=== PATIENT | male | born 1945 | race Caucasian/White ===

== ENCOUNTER → 2016-10-25 | Outpatient (CLI) | payer MEDICARE, OTHER ==
[~2016-10-25] MED LIST: ASPIRIN EC81 MG PO; ELIQUIS5 MG PO; LIPITOR40 MG PO; LOPRESSOR25 MG PO; PROSTATE HEALT1 EACH PO
== END | disposition disaster alternative care site (69) ==
LOC: GRAD 09:55
DX: I65.23 Occlusion and stenosis of bilateral carotid arteries (principal); Z86.73 Personal history of transient ischemic attack (TIA), and cerebral infarction without residual deficits

== ENCOUNTER 2016-10-29 11:00 | Inpatient (IN) | payer MEDICARE, OTHER ==
[~2016-10-29] VITALS: Ht 188 cm; Wt 86.6 kg
--- NOTE | ~2016-10-29 | DS ---
PATIENT'S NAME: ORVILLE GARCAI [facility] AGE: 71 Y [address] ROOM: [address] [address] LOCATION: GICU ADMIT DATE: 11/03/2016 Discharge Summary DISCHARGE DATE: 11/04/2016 FAMILY PHYSICIAN: Raul Amos MD ATTENDING PHYSICIAN: Ted Hopson ADMITTING DIAGNOSIS: Right carotid stenosis status post carotid endarterectomy. DISCHARGE DIAGNOSIS: Right carotid stenosis status post carotid endarterectomy. SECONDARY DIAGNOSES: 1. Bradycardia. 2. Hypertension. 3. History of transient ischemic attack. 4. Atrial flutter. PROCEDURE: Carotid endarterectomy done on 11/03/2016. CONSULTATIONS: 1. Vascular Surgery. 2. Cardiology. HISTORY OF PRESENT ILLNESS: The patient is a 71-year-old male with past medical history of TIAs, atrial flutter status post ablation, and hypertension, who presented here for elective right carotid endarterectomy. The patient underwent carotid endarterectomy and was noted to have a brief episode of atrial flutter. The patient was given digoxin and the patient was also taking metoprolol, and was noted to have low blood pressure and to be bradycardic. However, the patient was asymptomatic, denies chest pain, shortness of breath, lightheadedness, or confusion. The patient was started on Jg-Synephrine and was transferred to ICU for further evaluation. The patient's blood pressure improved also heart rate improved during stay. Jg- Synephrine drip was discontinued. HOSPITAL COURSE: The patient was transferred to ICU and was placed on telemonitor. Heart rate improved, however, his heart rate dips into 40s and low 50s. Cardiology saw the patient. Cardiology recommended stopping home medication of metoprolol. During day the patient's heart rate improved. On long discussion, he reports that his heart rate has been in the low 50s and 40s in the past ever since he was started on Lopressor. His blood pressure was stable. The patient was able to ambulate with adequate chronotropic response. The patient was offered to stay for one more night to evaluate his heart rate, however, the patient declined and insisting he wants to go home. PATIENT'S NAME: ORVILLE GARCIA [facility] AGE: 71 Y [address] ROOM: [id number] [place], [place] [address] LOCATION: GICU ADMIT DATE: 11/03/2016 Discharge Summary DISCHARGE DATE: 11/04/2016 FAMILY PHYSICIAN: Raul Amos MD ATTENDING PHYSICIAN: Ted Hopson At the time of discharge, the patient's heart rate was in the 60s. The patient was started on Eliquis 5 mg b.i.d. On the day of discharge, long- discussion was made about the use of Coumadin versus NOACs especially Eliquis. The patient elected to use Eliquis. Risk and benefit of anticoagulation were discussed with the patient and the patient fully understands. CONDITION: Stable. DISPOSITION: Home. DISCHARGE MEDICATIONS: 1. Holding his beta-edu. 2. We will start Eliquis 5 mg b.i.d. DISCHARGE INSTRUCTIONS: To go to the next Emergency Department or contact the physician if the patient feels chest pain, shortness of breath, fever, chills, productive cough, motor and sensory change, and dizziness. FOLLOWUP: Follow up with primary care physician and Dr. Hopson in 2 weeks. PHYSICAL EXAMINATION: VITAL SIGNS: Temperature 98.7, blood pressure 100/59 with heart rate of 53, and respiratory rate of 15. HEAD: Normocephalic and atraumatic. NECK: The patient has right endarterectomy surgical scar clean, dry, and intact. CHEST: Clear to auscultation. HEART: Regular rate and rhythm. No murmurs, rubs, or gallops. ABDOMEN: Soft, nontender, and nondistended. Bowel sounds present. EXTREMITIES: No edema. CENTRAL NERVOUS SYSTEM: The patient is alert and oriented x3. Greater than 30 minutes was spent on patient discharge. MAXINEWE MD JAISON SANCHEZ/sara /[id number] d: 11/05/16 1205 t: 11/09/16 0614, DISCHARGE SUMMARY
--- NOTE | ~2016-10-29 | CON ---
PATIENT'S NAME: ORVILLE GARCIA [facility] AGE: 71 Y [address] ROOM: [place] [address] LOCATION: CU ADMIT DATE: 11/03/2016 Consultation DISCHARGE DATE: FAMILY PHYSICIAN: RODDY DERAS MD ATTENDING PHYSICIAN: ARIANNE MI REFERRING PHYSICIAN: NHAN GARRETT MD CHIEF COMPLAINT: Bradycardia and hypotension after right carotid endarterectomy. HISTORY OF PRESENT ILLNESS: This is a 71-year-old male, who underwent elective right carotid endarterectomy today, and during the recovery period in the PACU, the patient developed a brief episode of atrial flutter, which required digoxin, and the patient also had taken metoprolol earlier today in the morning, and the patient's heart rate and blood pressure went low and required Jg-Synephrine drip, and the patient was transferred to ICU for further care. During all this time, the patient has been asymptomatic and denies any chest pain or shortness of breath or lightheadedness or confusion. The patient has a history of atrial flutter in the past, required ablation several years ago and has been on and off on Coumadin. Today, the patient was put back on Coumadin. We are being consulted for medical management. His medical problem includes hypertension and TIA without neurological deficit and history of atrial flutter in the past. Data Transcriber was also consulted for hypotension and sinus bradycardia, and patient was put on neosynephrine drip. REVIEW OF SYSTEMS: As mentioned in the history of present illness. All other systems were reviewed and were negative except those mentioned in the history of present illness. PAST MEDICAL HISTORY: 1. TIA in the past without any neurological deficit. 2. History of carotid stenosis, status post right carotid endarterectomy today. 3. Hypertension. 4. History of atrial flutter in the past, requiring ablation and has been on Coumadin on and off, right now is back on Coumadin and also takes metoprolol. ALLERGIES: NO KNOWN DRUG ALLERGIES. HOME MEDICATIONS: 1. Aspirin 81 mg p.o. daily. 2. Lipitor 40 mg p.o. daily. 3. Lopressor 25 mg p.o. b.i.d. PATIENT'S NAME: ORVILLE GARCIA [facility] AGE: 71 Y [address] ROOM: [place] [address] LOCATION: GICU ADMIT DATE: 11/03/2016 Consultation DISCHARGE DATE: FAMILY PHYSICIAN: RODDY DERAS MD ATTENDING PHYSICIAN: ARIANNE MI SOCIAL HISTORY: The patient was a former cigarette smoker. He quit about 9 years ago. He smoked about 1 pack per day for few years. He is a social alcohol drinker. Denies any alcohol abuse. He denies any illegal drug use. PAST SURGICAL HISTORY: 1. Status post right carotid endarterectomy today. 2. Appendectomy. 3. Hip surgery in the past. FAMILY HISTORY: Father and mother both from stroke at old age. PHYSICAL EXAMINATION: VITAL SIGNS: At the time of my dictation, heart rate is 47, blood pressure is 122/79, MAP of 71, saturation 95% on room air, and respiration is 16. GENERAL APPEARANCE: The patient is alert and oriented x3, in no acute distress. HEENT: Pupils are equally round and reactive to light. Extraocular muscles intact. Anicteric sclerae. Nasal turbinates are normal bilaterally. Moist oral mucosa. NECK: No JVD. CARDIOVASCULAR: Regular rate and rhythm. Normal S1, S2. No murmur. No rubs. No gallops. RESPIRATORY: Clear to auscultation. No rales. No rhonchi, no crackles, no wheezing. ABDOMEN: Soft, nontender, nondistended, bowel sounds present, no mass. EXTREMITIES: No edema in upper or lower extremities. SKIN: No ulcer, no rash, no cyanosis. NEUROLOGICAL: Grossly nonfocal. LABORATORY DATA: None so far. IMAGING STUDIES: None so far. ASSESSMENT AND PLAN: 1. Regarding his hypotension and bradycardia: Likely from the effects of digoxin and from the metoprolol. The patient's currently heart rate in the 45 and asymptomatic during all this time, blood pressure in the 120. I will continue the Jg-Synephrine drip as ordered by Cardiology, and we PATIENT'S NAME: ORVILLE GARCIA [facility] AGE: 71 Y [address] ROOM: [place] [address] LOCATION: GICU ADMIT DATE: 11/03/2016 Consultation DISCHARGE DATE: FAMILY PHYSICIAN: RODDY DERAS MD ATTENDING PHYSICIAN: AIRANNE MI will wean off as tolerated. I will hold the metoprolol for now and resume later once the heart rate and blood pressure is more stable. I will get a basic metabolic panel and magnesium to make sure the electrolytes are okay with the potassium more than 4 and magnesium more than 2 given that he has a brief episode of atrial flutter after the surgery today. Further plan will depend on clinical course. If he becomes symptomatic from the bradycardia, we will do atropine and also switch the Jg-Synephrine to dopamine or to epinephrine drip. 2. Regarding his history of atrial flutter: He is back on Coumadin given that he has a high CHADSVasc2 score. Coumadin per pharmacy to dose for INR 2 to 3. 3. Regarding his hypertension: Obviously right now, we will hold the metoprolol in the setting of bradycardia and hypotension in the postop period. For now, continue the Jg-Synephrine drip and wean off as tolerated. 4. Regarding his transient ischemic attacks: No active issue. No neurological deficit. 5. Regarding his right carotid endarterectomy: Per Vascular Surgery to manage. 6. Regarding his deep venous thrombosis prophylaxis: He is on Coumadin already. 7. He is a full code. Time spent in care on the day of consultation 35 minutes where 10 minutes were spent on chart review, and the remainder of time was spent on interview and physical examination, also on the counseling, which includes going over the plan of care with the patient and addressing all his questions and concerns to his satisfaction. Further plan will depend on clinical course. AYDEN SO MD CC/modl /[id number] d: 11/04/162 t: 11/04/16 0815, CONSULTATION REPORT
--- NOTE | ~2016-10-29 | CON ---
PATIENT'S NAME: ORVILLE GARCIA [facility] AGE: 71 Y [address] ROOM: [address] [address] LOCATION: GICU ADMIT DATE: 11/03/2016 Consultation DISCHARGE DATE: FAMILY PHYSICIAN: RODDY DERAS MD ATTENDING PHYSICIAN: ARIANNE HOPSON REFERRING PHYSICIAN: NHAN GARRETT MD REFERRING PHYSICIAN: Dr. Hopson. REASON FOR CONSULTATION: Atrial fibrillation with rapid ventricular response and post carotid endarterectomy. CHIEF COMPLAINT: The patient is postop and found to be in atrial fibrillation with rapid ventricular response. HISTORY OF PRESENTING ILLNESS: The patient is a very pleasant 71-year-old male, who has history of atrial flutter status post ablation procedure about five years ago by Dr. Pritchett per patient. He also has history of nonobstructive coronary artery disease noted on cardiac cath in 2008 with 40% mid LAD, 40% proximal RCA disease. His other comorbidities include sleep apnea. The patient also has history of hypertension and tobacco abuse. The patient is awake and answers questions appropriately. However, he is little bit slower to respond and just is postop from anesthesia for his right carotid endarterectomy. The patient reports he really does not have any chest pain, tightness, pressure, heaviness, or discomfort. He does not have any shortness of breath, PND, orthopnea, or lower extremity edema. He also denies palpitations. The patient reports he used to be on warfarin and that was stopped about a month ago after 30-day event monitor did not reveal any atrial flutter or fibrillation. The patient was diagnosed with 80% right internal carotid artery and history of TIA for which he underwent a carotid endarterectomy today. The patient was in sinus rhythm in the preop area. However, just prior to the surgery beginning, he was noted to be in atrial fibrillation. However, his rates are well controlled and his blood pressure was stable, so they decided to proceed with the surgery. The patient did tolerate the procedure well and there were a few episodes where he was in atrial fibrillation RVR with rates in the 110 range. At the end of the procedure, he did have some hypotension and he was PATIENT'S NAME: ORVILLE GARCIA [facility] AGE: 71 Y [address] ROOM: [address] [place] [address] LOCATION: [facility] ADMIT DATE: 11/03/2016 Consultation DISCHARGE DATE: FAMILY PHYSICIAN: RODDY DERAS MD ATTENDING PHYSICIAN: ARIANNE HOPSON started on Jg-Synephrine drip. REVIEW OF SYSTEMS: All review of systems discussed with the patient. Pertinent positives and negatives mentioned in the history of presenting illness. PAST MEDICAL HISTORY: He has history of hypertension, right carotid artery disease, history of atrial flutter status post ablation procedure, hyperlipidemia, and squamous- cell cancer. PAST SURGICAL HISTORY: Partial left hip surgery and pelvis fracture repair. FAMILY HISTORY: There is no evidence of premature coronary artery disease or sudden cardiac . SOCIAL HISTORY: The patient is and he used to smoke, but he quit. He does not any more. He is a social drinker. PHYSICAL EXAMINATION: VITAL SIGNS: Blood pressure systolic 80, diastolic 50s, according to the art line, he is on jg drip, heart rate 122, tele atrial fibrillation, respirations 16, height is 74 inches, and weight is 195 pounds. His BMI is 25. GENERAL: The patient is not in any apparent distress. He is slightly drowsy after his sedation for carotid endarterectomy. He is well-nourished and well- developed. EYES: Bilateral lids normal. Sclerae are clear. Mucous membranes moist. NECK: No JVD. HEART: S1, S2. Irregular rate and rhythm. Tachycardic. No murmurs, gallops, or rubs. LUNGS: Clear to auscultation bilaterally. No wheezing. ABDOMEN: Soft. Bowel sounds positive. EXTREMITIES: No edema. MUSCULOSKELETAL: Good range of motion. SKIN: Warm and dry. PSYCH: The patient is awake, arousable, and answers all questions appropriately. He is oriented to time and place. ALLERGIES: THE PATIENT DOES NOT HAVE ANY KNOWN DRUG ALLERGIES. PATIENT'S NAME: ORVILLE GARCIA [facility] AGE: 71 Y [address] ROOM: [place] [address] LOCATION: [facility] ADMIT DATE: 11/03/2016 Consultation DISCHARGE DATE: FAMILY PHYSICIAN: RODDY DERAS MD ATTENDING PHYSICIAN: ARIANNE HOPSON MEDICATIONS: 1. Aspirin 81 mg daily. 2. Lipitor 40 mg daily. 3. Metoprolol 25 mg p.o. b.i.d. CARDIAC STUDIES: His catheterization was done in 2008, 40% mid-LAD lesion, 40% RCA lesion. LVEDP at that time was 7. Echocardiogram that was done recently showed normal LV RV size and systolic function. No pericardial effusion. He did have mild to moderate TR and mild pulmonic insufficiency. Mild AI and mild diastolic dysfunction. IMPRESSION: 1. Atrial fibrillation with rapid ventricular response. 2. Hypotension, arterial. 3. Coronary artery disease without any angina. 4. Status post right carotid endarterectomy. PLAN: At this time, the patient has elevated CHADS-VASc score given his history of coronary artery disease as well as history of TIA, hypertension. At this time, it is very important to continue oral anticoagulation. He was on Coumadin and he tolerated that very well. We will get his home dosages and start Coumadin today with an INR goal of 2 to 3. We will attempt rate control, I think IV hydration and reducing and trying to wean off the jg-drip will help with his ventricular rate. Since he is hypotensive and his heart rates are in the 120s, I will load him with digoxin just temporarily to ensure we have better rate control. We will continue to monitor the patient and follow along with you and hopefully we will have better rate control and we will be able to discharge him on rate control and oral anticoagulation. He does not meet criteria now for emergent cardioversion. He is quite stable and responsive. We will give some time for the blood pressure to improve and try to wait for response from digoxin IV load. However, if he starts becoming symptomatic, we will proceed with emergent cardioversion. If the patient has good rate control since he is just postop from the carotid surgery, we will attempt rate control and anticoagulation strategy at least for a few weeks and then discussed with the patient and decide on cardioversion as an outpatient especially if he is symptomatic from it. Thank you very much for allowing us to participate in the care of Mr. Garcia. PATIENT'S NAME: ORVILLE GARCIA [facility] AGE: 71 Y [address] ROOM: [place] [address] LOCATION: [facility] ADMIT DATE: 11/03/2016 Consultation DISCHARGE DATE: FAMILY PHYSICIAN: RODDY DERAS MD ATTENDING PHYSICIAN: ARIANNE HOPSON MD PERLA REES/sara /[id number] d: 11/03/16 2230 t: 11/09/16 0803, CONSULTATION REPORT
--- NOTE | ~2016-10-29 | OR ---
PATIENT'S NAME: ORVILLE GARCIA [facility] AGE: 71 Y [address] ROOM: [address] [address] LOCATION: GICU ADMIT DATE: 11/03/2016 OR/Procedure Report DISCHARGE DATE: FAMILY PHYSICIAN: RODDY DERAS MD ATTENDING PHYSICIAN: TED MI SURGEON: Ted Mi MD BILINGUAL OPERATOR: DATE OF PROCEDURE: 11/03/2016 PREOPERATIVE DIAGNOSIS: High-grade right internal carotid artery stenosis. POSTOPERATIVE DIAGNOSIS: High-grade right internal carotid artery stenosis. PROCEDURE: Right carotid endarterectomy with bovine pericardial patch. PRODUCTION CREW SUPERVISOR: GONZALO Swann. ANESTHESIA: General. ESTIMATED BLOOD LOSS: 50 mL. OPERATIVE FINDINGS: Neurologically intact at the end of the case and highly ulcerated lesion in the right carotid. DESCRIPTION OF PROCEDURE: The patient was brought to the operating room, placed supine on the operating table, placed under general anesthesia, prepped and draped in a sterile manner. Preop time-out was performed. The patient received preoperative antibiotics. We made a standard incision along the anterior border of the sternocleidomastoid muscle on the right, transected the platysma and dissected the soft areolar tissue along the anterior border of the muscle, dissected out the internal jugular, identified the facial vein which was ligated and transected. We then dissected out the common, external, internal, and superior thyroid. We gave 5000 units of heparin. We clamped on all 3 major vessels and then placed a clip on the superior thyroid. We performed a back pressure, which showed the pressure was above 60 and was adequate for not requiring a shunt. We then removed the plaque. We made arteriotomy with 11-blade and extended it with Manrique scissors. We then removed the plaque in its entirety. We then did a standard bovine pericardial patch using 2 running 6-0 [place] sutures. Before completing anastomosis, we allowed backbleeding from the internal as well as flushing from both the common and external. We then completed anastomosis. We opened the clamp from the external and the common. We waited 10 heartbeats and then opened the clamp from the internal. All bleeding areas were repaired with interrupted 6- 0 Prolene. Flow was confirmed with all 3 vessels with Doppler. Heparin was reversed with protamine. Deep layers were treated with thrombin for PATIENT'S NAME: ORIVLLE GARCIA [facility] AGE: 71 Y [address] ROOM: [place] [address] LOCATION: CU ADMIT DATE: 11/03/2016 OR/Procedure Report DISCHARGE DATE: FAMILY PHYSICIAN: RODDY DERAS MD ATTENDING PHYSICIAN: TED MI hemostasis. We then used 2-0 and 3-0 Vicryl to close those layers and then closed the skin with running 4-0 Monocryl. The patient tolerated the procedure well and transferred to the recovery room and then up to the floor. MD AUGIE PATELM/nhanl /[id number] d: 11/03/167 t: 11/05/16 1833, OPERATIVE SUMMARY
[2016-10-29] MEDS ORDERED: LOPRESSOR25 MG PO (11:17)
[2016-10-29] MEDS ORDERED: LIPITOR40 MG PO (11:17)
[2016-10-29] MEDS ORDERED: ASPIRIN EC81 MG PO (11:17)
[2016-10-29] MEDS ORDERED: PROSTATE HEALT1 EACH PO (11:18)
--- NOTE | 2016-11-03 17:02 | NUR ---
0939 RECIEVED PATIENT INTO RECOVERY. PATIENT IS NOT FOLLOWING COMMANDS AT THIS TIME. HE IS SLIGHTLY AGGITATED AT TIMES. HIS RYTHM FLIPPS BACK AND FORTH BETWEEN AFIB AND ATRIAL FLUTTER. 1027 0.5 MG DIGOXIN IV FOR ATRIAL FLUTTER. PRESSURES HAVE DROPPED AND ANESTHESIA HAS BEEN CALLED ABOUT PRESSURE AND HEART RYTHM. PAULINO GTT INITATED AT 1045 AT 0.06 MCG/KG. PATIENT HAS BEEN INCONTINAT OF A LARGE AMOUNT OF URINE X2 DURING THIS TIME. PRESSURES MONITORED VIA ART LINE. 1200 PAULINO IS UP TO 0.1 MCG/KG AT THIS TIME. PRESSURES ARE SLOW TO RESPOND. PATIENT IS AWAKE AND ALERT AT THIS TIME. 1300 PAULINO IS NOW AT 0.18 MCG/KG. PRESSURES HAVE FINALLY STABALIZED. O2 DEMAND HAS DECREASED AND PATINET IS ALERT AND ORIENTATED. 1345 DR COOLEY CALLED R/T HEART RATE CONVERTING AND IS NOW 38-48 FOR BPM. ORDERED RECIEVED TO DISCONTINUE DIGOXIN AND RESUME METOPROLOL. ANESTHESIA HAS BEEN NOTIFIED OF PATIENTS CONDITION. 1522 DISMISSAL CRITERIA MET PER PACU PROTOCOL. PATIENT IS TRANSFERED TO ICU 6210 AND REPORT IS GIVEN TO CHARLES MONTOYA.
--- NOTE | 2016-11-03 19:57 | NUR ---
ARRIVED IN ICU FROM PACU AT 1520. PAULINO GTT TO KEEP SBP >100, MAP>60. BRADYCARDIA IN LOW 40S. DR. DONAHUE AWARE
[2016-11-03 21:26] LABS: ANION GAP 8.3 (10.0-19.0); CALCIUM 7.9 mg/dL (8.5-10.5); MAGNESIUM 2.1 mg/dL (1.8-2.6); POTASSIUM 4.3 mMol/L (3.7-5.1)
--- NOTE | 2016-11-04 04:59 | NUR ---
Significant Event: Neuro intact. HR mid 30s to low 50s. Jg off since 1999. RA. Good appetite. No BM. Voids independently per urinal, 475 ml concentrated urine out. Surgical site dressing to R) neck shows small amount of shadow drainage. D51/2NS with KCl running at 75 ml/hr. States minimal pain and refuses medication. Stood and walked in place x1 with minimal assist. Follow up: Change status
[2016-11-04 05:26] LABS: INR - (THERAPEUTIC) 1.17 (0.92-1.07); PROTIME 12.3 SECONDS (9.8-11.4)
[2016-11-04 05:43] LABS: ALBUMIN 2.9 gm/dL (3.5-5.0); ANION GAP 11.4 (10.0-19.0); CALCIUM 8.1 mg/dL (8.5-10.5); CREATININE 0.9 mg/dL (0.6-1.3); POTASSIUM 4.4 mMol/L (3.7-5.1); TOTAL BILIRUBIN 0.3 mg/dL (0.0-1.5); TOTAL PROTEIN 5.7 g/dL (6.0-8.4)
[2016-11-04 05:46] LABS: BASOPHIL % 0.1 %; EOSINOPHIL # 0.1 K/uL (0.0-0.5); EOSINOPHIL % 0.5 %; HEMATOCRIT 37.2 % (37.0-53.0); HEMOGLOBIN 12.5 g/dL (11.0-16.0); IMMATURE GRANULOCYTE % 0.2 %; LYMPHOCYTE # 1.9 K/uL (0.8-4.0); LYMPHOCYTE % 18.2 %; MCH 31.3 pg (27.0-34.0); MCHC 33.6 gm/dL (32.0-36.5); MCV 93.2 fl (83.0-98.0); MONOCYTE % 10.1 %; MPV 10.7 fl (9.4-12.4); NEUTROPHIL # (ANC) 7.3 K/uL (1.4-9.0); NEUTROPHIL % 70.9 %; NRBC % 0 /100WBC (0-0.00); PLATELET COUNT 132 K/uL (150-450); RBC 3.99 M/uL (3.50-5.50); RDW-CV 13.9 % (11.9-14.6); WBC 10.3 K/uL (4.0-11.0)
--- NOTE | 2016-11-04 11:15 | NUR ---
Introduced self and role of care management to patient. He lives in [place] with his . He states that he is able to do all his own ADL's. His will be available to assist as needed. He plans on returning home on discharge. He denies any needs at this time. Will continue to follow.
[2016-11-04] MEDS ORDERED: ELIQUIS5 MG PO (11:50)
--- NOTE | 2016-11-04 16:19 | NUR ---
Significant Event: AAOx3, denies N/T. Pupils equal 3mm brisk. Equal strong strength throughout. L.S. clear throughout. SBP 110-120's, HR 40-50's, 2+ pulses, absent edema. B.S. active. Urinates per urinal. PIV's discontinued. Ambulated in halls x 2 with minimal assist and gait belt. Follow up: Left floor at 1225 with UAP and use of gait belt, discussed new medications, post endarterectomy home care health, DVT prevention and bradycardia. Notified of upcoming appointments, and patient agreed with education and dismissed home.
== END 2016-11-04 12:30 | disposition disaster alternative care site (69) | DRG 983 ==
LOC: GPCU 11-03 05:33 → GICU 11-03 05:33 → GPCU 11-03 10:03 → GICU 11-03 15:19
PROVIDERS: Internal Medicine; Internal Medicine Interventional Cardiology; ADMIT Surgery Vascular Surgery
PROC: 02C Heart and Great Vessels, Extirpation (ICD-10-PCS; principal; 2016-11-03)
DX: I65.21 Occlusion and stenosis of right carotid artery (principal); I95.9 Hypotension, unspecified; I48.91 Unspecified atrial fibrillation; R00.1 Bradycardia, unspecified; I10 Essential (primary) hypertension; Z87.891 Personal history of nicotine dependence; Z79.82 Long term (current) use of aspirin; Z79.01 Long term (current) use of anticoagulants
CPT/HCPCS: J0461; J0690; J1100; J1160; J1644; J1650; J2001; J2250; J2370; J2405; J2720; J3480; J7030; J7050